=== PATIENT | male | born 1990 | race Caucasian/White ===

== ENCOUNTER → 2022-08-30 | Outpatient (CLI) | payer OTHER ==
[~2022-08-30] MED LIST: CEPH500 PO; CLOT1TC TOP; HYDACE5 PO; RXHYDACE PO; SULTRIDS PO
== END | disposition home or self-care (01) ==
LOC: LAB SHORT 12:42
DX: L91.8 Other hypertrophic disorders of the skin (principal)
CPT/HCPCS: 88304